=== PATIENT | female | born 1965 | race Two or more races ===

== ENCOUNTER 2017-01-25 07:07 | Day surgery (SDC) | payer MEDICARE ==
[2017-01-17 12:19] VITALS: BMI 43.9
[2017-01-25] MEDS ORDERED: ceFAZolin IV 1 gm in Dextrose 0 GM/0 ML BAG IVPB ONE (07:14)
[2017-01-25] MEDS ORDERED: Bupivacaine HCl 0.25% PF (10 ml) Inj ONE (07:15)
[2017-01-25] MEDS ORDERED: Lactated Ringer's 1,000 ML IV ONE ×2 (07:31)
[2017-01-25] MEDS: ceFAZolin IV 2 gm in Dextrose 1 GM/50 ML BAG IVPB ONE ×2 (07:31→08:05)
[2017-01-25] MEDS ORDERED: Midazolam 2 MG/2 ML VIAL ONE (07:35)
[2017-01-25] MEDS ORDERED: Propofol 10 mg/ml Inj (20 ML) ONE ×3 (07:35→08:32)
[2017-01-25] MEDS ORDERED: Lidocaine 1% Inj (20ml) ONE (08:11)
[2017-01-25] MEDS ORDERED: HYDROmorphone 0.5 mg/0.5 ml ISec IVP PRN (08:48)
[2017-01-25] MEDS ORDERED: Oxycodone/Acetaminophen 5/325 mg Tab PO PRN (09:05)
--- NOTE | 2017-01-25 09:05 | PCM.SURG1 ---
Surgeon's Initial Post Op Note - Surgeon's Notes Surgeon: Ru Guzman MD [employer] C[employer] Farmer: Colleen Dyson, PGY-1 Type of Anesthesia: IV Sedation Pre-Operative Diagnosis: Lipoma of Proximal Left Forearm Operative Findings: Deep, Submuscular lipoma of left proximal forearm Post-Operative Diagnosis: Deep, submuscular lipoma of left proximal forearm Operation Performed: Excision of deep submuscular lipoma of left forearm Specimen/Specimens Removed: lipoma of left forearm, scar of left forearm Estimated Blood Loss: EBL {In ML}: 5 Blood Products Given: N/A Drains Used: No Drains Post-Op Condition: Good Date of Surgery/Procedure: 01/25/17 Time of Surgery/Procedure: 09:05
[2017-01-25 09:48] VITALS: TEMP 97.7
[2017-01-25 10:22] VITALS: BP 134/75; PULSE 89; RESP 16; O2SAT 98
== END 2017-01-25 10:18 | disposition home or self-care (01) ==
LOC: C.SDS 07:07
PROVIDERS: ATTEND Surgery Vascular Surgery
DX: D17.22 Benign lipomatous neoplasm of skin and subcutaneous tissue of left arm (principal); Z68.41 Body mass index [BMI] 40.0-44.9, adult
CPT/HCPCS: 11404; 88304; 88305; J0690; J2250; J2704; J3010; J7120